=== PATIENT | male | born 1935 | race Caucasian/White ===

== ENCOUNTER → 2022-06-22 | Outpatient (CLI) | payer MEDICARE ==
[~2022-06-22] MED LIST: TIXAGEVIMAB/CILGAVIMAB (EUA) 300 MG/3 ML COMBO.PKG IM NR
[2022-06-22 13:04] VITALS: BP 116/66; PULSE 85; RESP 16; TEMP 98.1
== END ==
LOC: PROCWHC3 12:41
PROVIDERS: ATTEND Internal Medicine Hematology & Oncology
DX: Z23 Encounter for immunization (principal); Z88.1 Allergy status to other antibiotic agents
CPT/HCPCS: Q0220; M0220

== ENCOUNTER 2024-02-12 06:09 | Day surgery (SDC) | payer MEDICARE ==
[2024-02-09 09:22] VITALS: BMI 20.7
[2024-02-12] MEDS: LACTATED RINGERS 1,000 ML IV SCH (06:43)
[2024-02-12 06:53] VITALS: TEMP 97
[2024-02-12] MEDS ORDERED: PROPOFOL 10 MG/ML 20 ML VIAL IV ONE (07:08)
[2024-02-12 07:40] VITALS: RESP 16
--- NOTE | 2024-02-12 07:45 | OP ---
OPERATIVE REPORT DATE OF SERVICE : 02/12/2024 PROCEDURE: Bone marrow aspirate and biopsy. INDICATION: The patient is known to have AML. He is being treated with Venetoclax and Vidaza, and he has been in remission to assess remission status. DESCRIPTION OF PROCEDURE: After obtaining consent from the patient, the procedure was performed in the endoscopy suite under general anesthesia performed by anesthesia team. The patient was put in left lateral decubital position. The right posterior superior iliac crest was localized. Skin was prepped with ChloraPrep, all sterile procedures were followed. 1 mL of 2% xylocaine was used for local anesthetic. Jamshidi needle was inserted, about 30 mL of aspirate was obtained and 2 cm core biopsy was obtained without any difficulties. Pressure applied afterwards. There was negligible blood loss. The patient tolerated procedure very well without any immediate complications. CHI / ANTONIO: [id number] /
[2024-02-12 07:47] VITALS: BP 157/74; PULSE 61
[2024-02-12 08:08] LABS: HCT 37.4 % (39.0-53.0); HGB 12.2 gm/dL (13.0-17.5); MCH 31.7 pg (25.0-35.0); MCHC 32.6 g/dL (31.0-37.0); MCV 97.5 fL (80.0-100.0); Mean Platelet Volume 8.6; Platelet Count 118 k/uL (150-450); RBC 3.84 m/uL (4.30-5.90); RDW 14.7 % (11.5-15.5); Reticulocyte % 1.8 % (0.5-2.0); WBC 2.8 k/uL (3.8-10.6)
[2024-02-12 08:50] LABS: Eosinophils # (M) 0.08 k/uL (0-0.7); Lymphocytes # (M) 0.25 k/uL (1.0-4.8); Monocytes # (M) 0.22 k/uL (0-1.0); Neutrophils # (M) 2.24 k/uL (1.3-7.7); Neutrophils % (M) 80 %; Nucleated Red Blood Cells 0 /100 WBC (0-0); Total Cells Counted 100
== END 2024-02-12 08:08 | disposition home or self-care (01) ==
LOC: OR 06:09
PROVIDERS: ATTEND Internal Medicine Hematology & Oncology
DX: C92.00 Acute myeloblastic leukemia, not having achieved remission (principal); I10 Essential (primary) hypertension; E07.9 Disorder of thyroid, unspecified; Z85.3 Personal history of malignant neoplasm of breast; Z79.01 Long term (current) use of anticoagulants; Z79.899 Other long term (current) drug therapy; Z79.890 Hormone replacement therapy; Z88.8 Allergy status to other drugs, medicaments and biological substances
CPT/HCPCS: 85025; 85045; 38222; J2704

== ENCOUNTER → 2024-02-21 | Outpatient (CLI) | payer MEDICARE ==
--- NOTE | 2024-02-21 12:01 | FL ---
Exam Date: 02/21/2024 11:24 AM. Modified barium swallow for dysphagia. Consistencies administered: Various consistency of barium. Fluoro time: 1 min 19 sec No images were sent to PACS. Please see speech pathology report. DAP: Not reported mGym2 Gycm2 DILLON WITH DR HANDLEY, BA=THIN, NECTAR, HONEY AND PUDDING, 1MIN 19SEC FL TIME
== END | disposition home or self-care (01) ==
LOC: RADFLMAIN 10:49
PROVIDERS: ATTEND Otolaryngology
DX: R13.10 Dysphagia, unspecified (principal)
CPT/HCPCS: 74230

== ENCOUNTER → 2024-07-18 | Outpatient (CLI) | payer MEDICARE ==
--- NOTE | 2024-07-18 11:17 | CT ---
EXAMINATION TYPE: CT brain wo con DATE OF EXAM: 07/18/2024 COMPARISON: None CLINICAL INDICATION: Male, 89 years old with history of F03.A0 DEMENTIA R41.3 AMNESIA; PHH, memory lo ss, sense of falling CT DLP: 1047.1 mGycm Automated exposure control for dose reduction was used. Findings: The ventricles, basal cisterns and sulci over the convexities are moderately enlarged. There is moder ate to marked decreased density in the periventricular white matter consistent with chronic ischemic white matter demyelination. There is no mass effect or shift of the midline structures. There is no acute intra or extra-axial hemorrhage. The posterior fossa including the brainstem, fourth ventricle and cerebellar pontine angles appear no rmal. Intraorbital contents appear normal and symmetric. There is mild inflammatory change in the right maxillary sinus and a few of the ethmoid air cells. Th e mastoid air cells are well aerated. The calvarium is intact. IMPRESSION: 1. No acute bleed or mass effect. 2. Senescent atrophy and ischemic white matter changes as described above. [facility], , 07/18/2024 11:15 AM
== END | disposition home or self-care (01) ==
LOC: RADCTMAIN 10:13
PROVIDERS: ATTEND Psychiatry & Neurology Neurology
DX: R41.3 Other amnesia (principal); F03.A0 Unspecified dementia, mild, without behavioral disturbance, psychotic disturbance, mood disturbance, and anxiety; I67.82 Cerebral ischemia
CPT/HCPCS: 70450

== ENCOUNTER 2024-12-23 11:22 | Day surgery (SDC) | payer MEDICARE ==
[2024-12-18 11:09] VITALS: BMI 20.5
[2024-12-23] MEDS: IV FLUID CONTINUATION 1,000 ML IV ONE ×2 (11:58→12:13)
[2024-12-23] MEDS: LACTATED RINGERS 1,000 ML IV SCH (11:59)
[2024-12-23 12:08] VITALS: TEMP 97.5
[2024-12-23] MEDS ORDERED: PROPOFOL 10 MG/ML 20 ML VIAL IV ONE (12:16)
[2024-12-23 12:40] VITALS: RESP 16
[2024-12-23 12:56] VITALS: BP 106/61; PULSE 76
[2024-12-23 13:02] LABS: HCT 31.5 % (39.6-50.0); HGB 10.6 g/dL (13.0-17.0); MCH 33.8 pg (27.0-32.0); MCHC 33.7 g/dL (32.0-37.0); MCV 100.3 fL (80.0-97.0); Mean Platelet Volume 11.9 fL (9.5-12.2); RBC 3.14 10*6/uL (4.40-5.60); RDW 15.7 % (11.5-14.5); WBC 2.11 10*3/uL (4.50-10.00)
[2024-12-23 14:12] LABS: Band Neutrophils % 5 %; Lymphocytes # (M) 0.23 k/uL (1.0-4.8); Metamyelocytes # (M) 0.02 k/uL (0); Metamyelocytes % 1 %; Monocytes # (M) 0.04 k/uL (0-1.0); Myelocytes # (M) 0.02 k/uL (0); Myelocytes % 1 %; Neutrophils # (M) 1.79 k/uL (1.3-7.7); Neutrophils % (M) 80 %; Nucleated Red Blood Cells 0 /100 WBC (0-0); Platelet Count 67 10*3/uL (140-440); Total Cells Counted 100
--- NOTE | 2024-12-24 10:16 | OP ---
OPERATIVE REPORT DATE OF SERVICE : 12/23/2024 PROCEDURE PERFORMED: Bone marrow aspirate and biopsy. INDICATION: The patient with history of AML and MDS. DESCRIPTION OF PROCEDURE: After obtaining consent from the patient, the procedure was performed in the endoscopy suite, under general anesthesia, performed by Anesthesia team. The patient was put in the left lateral decubitus position. The right posterior superior iliac crest was localized. The skin was prepped with ChloraPrep, all sterile procedures were followed. About 1 mL of 1% Xylocaine was used for local anesthetic. Jamshidi needle was inserted. 20 mL aspirate and about 2 cm core biopsy was obtained without any difficulties. Pressure applied afterwards. There was negligible blood loss. The patient tolerated the procedure very well without any immediate complications. MMODL / IJN: [id number] /
== END 2024-12-23 13:16 | disposition home or self-care (01) ==
LOC: OR 11:22
PROVIDERS: ATTEND Internal Medicine Hematology & Oncology
DX: C94.6 Myelodysplastic disease, not elsewhere classified (principal)
CPT/HCPCS: 85025; 38222; J2704